=== PATIENT | female | born 1935 | race Caucasian/White ===

== ENCOUNTER 2016-08-28 17:23 | Emergency (ER) | payer MEDICARE ==
[~2016-08-28] VITALS: Ht 162.6 cm; Wt 63.6 kg
[~2016-08-28 17:23] MED LIST: AMLO5TAB66 PO; ATEN25 PO; DOCU-119 PO; LIDOP TP; LISI-618 PO; METF10002 PO; SENN8.6T90 PO; ketoprofen TP
[2016-08-28] MEDS ORDERED: INSLAN SQ (17:45)
[2016-08-28] MEDS ORDERED: LORA10TA7 PO (17:45)
[2016-08-28] MEDS ORDERED: VITAD1000 PO (17:45)
[2016-08-28] MEDS ORDERED: METO50 PO (17:45)
[2016-08-28] MEDS ORDERED: FERS325 PO (17:45)
[2016-08-28] MEDS ORDERED: PRAS10TA6 PO (17:45)
[2016-08-28] MEDS ORDERED: HYDR-3965 PO (17:45)
[2016-08-28] MEDS ORDERED: ASPI81 PO (17:45)
[2016-08-28] MEDS ORDERED: FAMO20 PO (17:45)
[2016-08-28 17:52] LABS: GLUCOSE,POINT OF CARE 147 MG/DL (70-110)
[2016-08-28 19:17] VITALS: BP 111/61
== END 2016-08-28 20:09 | disposition home or self-care (01) ==
LOC: EMS 17:27
DX: S60.443A External constriction of left middle finger, initial encounter (principal); E11.9 Type 2 diabetes mellitus without complications; I10 Essential (primary) hypertension; Z88.2 Allergy status to sulfonamides; Z79.82 Long term (current) use of aspirin; W49.04XA Ring or other jewelry causing external constriction, initial encounter; Y93.89 Activity, other specified; Y92.89 Other specified places as the place of occurrence of the external cause; Y99.8 Other external cause status
CPT/HCPCS: 82962; 99283